=== PATIENT | female | born 2000 | race Two or more races ===

== ENCOUNTER 2018-07-23 09:48 | Inpatient (IN) | payer OTHER ==
[~2018-07-23] VITALS: Ht 167.6 cm; Wt 77.3 kg
[2018-07-23 10:55] LABS: HEMATOCRIT 43.1 % (36.0-47.0); HEMOGLOBIN 13.9 g/dl (12.0-15.5); MEAN CORPUSCULAR HGB CONC 32.3 g/dl (32.0-36.5); MEAN CORPUSCULAR VOLUME 83.7 fl (80.0-96.0); PLATELET COUNT, AUTOMATED 349 10^3/uL (150-450); RED BLOOD COUNT 5.15 10^6/uL (4.00-5.40); WHITE BLOOD COUNT 8.8 10^3/uL (4.0-10.0)
[2018-07-23 11:06] LABS: AMPHETAMINES LEVEL URINE NEGATIVE (NEGATIVE); BARBITURATES URINE NEGATIVE (NEGATIVE); BENZODIAZEPINES URINE NEGATIVE (NEGATIVE); CANNABINOIDS URINE NEGATIVE (NEGATIVE); COCAINE METABOLITE URINE NEGATIVE (NEGATIVE); METHADONE URINE NEGATIVE (NEGATIVE); OPIATES URINE NEGATIVE (NEGATIVE); PHENCYCLIDINE URINE NEGATIVE (NEGATIVE)
[2018-07-23 11:22] LABS: HCG, SERUM QUALITATIVE NEGATIVE (NEGATIVE)
[2018-07-23 11:33] LABS: ACETAMINOPHEN LEVEL < 2.0 UG/ML (10.0-30.0); ALBUMIN 4.2 GM/DL (3.2-5.2); ALT/SGPT 25 U/L (12-78); BILIRUBIN,DIRECT 0.1 MG/DL (0.0-0.2); BILIRUBIN,TOTAL 0.3 MG/DL (0.2-1.0); BLOOD UREA NITROGEN 11 MG/DL (7-18); CALCIUM LEVEL 9.3 MG/DL (8.5-10.1); CARBON DIOXIDE LEVEL 27 MEQ/L (21-32); CHLORIDE LEVEL 106 MEQ/L (98-107); ETHYL ALCOHOL (ETHANOL) < 0.003 % (0.000-0.010); GLUCOSE, FASTING 99 MG/DL (70-100); POTASSIUM SERUM 4.3 MEQ/L (3.5-5.1); SALICYLATE LEVEL < 1.7 MG/DL (5.0-30.0); SODIUM LEVEL 141 MEQ/L (136-145)
[2018-07-23] MEDS ORDERED: MAALOX 30 ML SUSP *UDC PO PRN (12:45)
[2018-07-23] MEDS ORDERED: ACETAMINOPHEN TAB 650MG DOSE (2X325MG) PO PRN (12:45)
[2018-07-23] MEDS ORDERED: MOM 30ML SUSPENSION UDC PO PRN (12:45)
[2018-07-23] MEDS ORDERED: [UNRECOGNIZED DRUG - CODE] PO (13:01)
[2018-07-23] MEDS ORDERED: IBUPOTC PO (13:01)
[2018-07-23 16:12] VITALS: BP 135/87
[2018-07-23 18:06] VITALS: BP 117/68
[2018-07-23] MEDS: traZODone 50 MG TAB PO PRN (20:24)
[2018-07-24 06:43] VITALS: BP 116/65
--- NOTE | 2018-07-24 10:07 | HPEPDOC ---
[facility] [place] Date of Admission Jul 23, 2018 History and Physical PCP: None ATTENDING: Dr. Yessenia Garcia HPI:17yoF admitted to [facility] for unspecified depressive disorder, being medically examined today. No acute medical complaints today. Denies any fevers, chills, weakness, fatigue, [place], CP, SOB, cough, palpitations, abdominal pain, N/V/D or changes in bowel or bladder habits. PMHx: anxiety depression H/O SI PSHX: denies SOCHX: Resides in: [facility] Marital Status: single Kids: none Employment: [employer] student Tobacco use: denies ETOH: 2-4 drinks per month Illicit Drugs: marijuana 1-2x per mo IV Drug Use: Denies Tattoos done unprofessionally: Denies FAMHX: Mother: Alive, well Father: Alive, ALS Siblings: 1 brother Alive, unknown Children: none Unexpected deaths due to medical reasons: None. ROS: As noted in HPI, otherwise 11pt ROS of systems reviewed and remarkable only for LMP 07/20/18. PE: GEN: 17yoF, appears stated age. Well-nourished, well developed. No acute distress. Alert and oriented x 3. Pleasant, interactive. HEENT: Normocephalic, atraumatic. Pupils are equal, round, and reactive to light. Extraocular movements are intact. No nystagmus appreciated. Sclera are n onicteric. Conjunctiva without injection. Nose midline. Nasal turbinates without bogginess. EACs both patent BL. TMs both visualized and olea with good cone of light, no bulging or erythema. No facial asymmetry. Moist mucous membranes. Dentition fair. Pharynx pink and moist, no cobblestoning. Neck supple, trachea midline. No lymphadenopathy or thyromegaly appreciated. CHEST: Regular rate and rhythm, +S1, +S2 LUNGS: Clear to auscultation bilaterally. No wheezes, rales, or rhonchi. Breathing appears symmetric and easy. Patient is speaking in full sentences. No accessory muscle use. ABD: Round, soft, non-tender, non-distended. +Bowel sounds throughout. No rebound or guarding. No costovertebral angle tenderness. EXT: Pulses 2+ bilaterally dorsalis pedis and radial. No lower extremity edema appreciated. SKIN: [place], dry, warm. Capillary refill <2sec. No rashes. NEURO: Alert and oriented x 3. Cranial nerves III-XII are intact. No focal deficits appreciated. EKG: pending A&P: 17yoF admitted to [facility] for unspecified depressive disorder 1. Psych. Plan per Psychiatry. Obtain baseline EKG to assure the safety of psychiatric medications as they can prolong the QT interval. 2. Follow up. No Primary Care Provider. Will attempt to establish PCP on discharge. 3. Staff member Charla DOHERTY present throughout exam. Vital Signs Vital Signs Date Time Temp Pulse Resp B/P (MAP) Pulse Ox O2 Delivery O2 Flow Rate FiO2 07/24/18 06:43 97.4 80 14 116/65 (82) 07/23/18 14:46 100 Room Air Laboratory Data Labs 24H Laboratory Tests 2 07/23/18 10:26: Nucleated Red Blood Cells % (auto) 0.0, Anion Gap 8, Calcium Level 9.3, Aspartate Amino Transf (AST/SGOT) 18, Alanine Aminotransferase (ALT/SGPT) 25, Alkaline Phosphatase 67, Total Bilirubin 0.3, Direct Bilirubin 0.1, Total Protein 8.0, Albumin 4.2, Albumin/Globulin Ratio 1.11, Thyroid Stimulating Hormone (TSH) 2.780, Human Chorionic Gonadotropin, Qual NEGATIVE, Salicylates Level < 1.7L, Acetaminophen Level < 2.0L, Ethyl Alcohol Level < 0.003 07/23/18 10:27: Urine Amphetamines Screen NEGATIVE, Urine Benzodiazepines Screen NEGATIVE, Urine Opiates Screen NEGATIVE, Urine Methadone Screen NEGATIVE, Urine Barbiturates Screen NEGATIVE, Urine Phencyclidine Screen NEGATIVE, Urine Cocaine Metabolite Screen NEGATIVE, Urine Cannabinoids Screen NEGATIVE CBC/BMP Laboratory Tests 07/23/18 10:26 Red Blood Count 5.15, Mean Corpuscular Volume 83.7, Mean Corpuscular Hemoglobin 27.0, Mean Corpuscular Hemoglobin Concent 32.3, Red Cell Distribution Width 13.8 Home Medications Scheduled (One A Day Womens 28-0.8-235 mg) 1 Cap Cap, 1 CAP PO DAILY Scheduled PRN Ibuprofen (Ibuprofen) 200 Mg Tab, 400 MG PO Q8H PRN for PAIN Allergies Coded Allergies: No Known Allergies (Unverified , 07/23/18) Ann Marie Haddad Jul 24, 2018 10:07
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
[2018-07-24] MEDS ORDERED: FLUoxetine 10 MG CAP PO ONE (12:30)
[2018-07-24 18:39] VITALS: BP 131/73
[2018-07-24] MEDS: traZODone 50 MG TAB PO PRN (21:40)
--- NOTE | 2018-07-24 22:07 | ECGEPIP ---
Stationary ECG Study [facility] Test Date: 2018-07-24 Pat Name: FIONA HASSAN Department: Room: [place] [address] Gender: F Manager [employer]: [employer] : 2000 Requested By: Ann Marie Haddad Order Number: [id number] Reading MD: Curly Ruiz Measurements Intervals [place] Rate: 93 P: 52 WY: 173 QRS: 58 QRSD: 92 T: 15 QT: 365 QTc: 454 Interpretive Statements SINUS RHYTHM NONSPECIFIC T-WAVE ABNORMALITY No prior tracing Clinical correlation? Electronically Signed On 07-24-2018 22:06:52 EST by Curly Ruiz
[2018-07-25 06:22] VITALS: BP 112/53
[2018-07-25] MEDS: hydrOXYzine 25 MG TAB PO PRN (08:18)
[2018-07-25] MEDS ORDERED: FLUoxetine 10 MG CAP PO SCH (09:00)
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
[2018-07-25 18:00] VITALS: BP 141/67
[2018-07-25] MEDS: QUEtiapine FUMARATE 25 MG TAB PO PRN (20:22)
[2018-07-26 06:04] VITALS: BP 133/74
[2018-07-26] MEDS: FLUoxetine 10 MG CAP PO SCH (10:23)
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
[2018-07-26 18:00] VITALS: BP 115/65
[2018-07-26] MEDS: hydrOXYzine 25 MG TAB PO PRN (18:29)
[2018-07-26] MEDS: QUEtiapine FUMARATE 25 MG TAB PO PRN (22:07)
[2018-07-27 06:00] VITALS: BP 110/63
[2018-07-27] MEDS: FLUoxetine 10 MG CAP PO SCH (08:17)
[2018-07-27 18:05] VITALS: BP 127/82
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
[2018-07-27] MEDS: QUEtiapine FUMARATE 25 MG TAB PO PRN (20:44)
[2018-07-28 06:57] VITALS: BP 114/59
[2018-07-28] MEDS: FLUoxetine 10 MG CAP PO SCH (08:17)
[2018-07-28] MEDS: hydrOXYzine 25 MG TAB PO PRN (14:31)
[2018-07-28 18:03] VITALS: BP 123/65
[2018-07-28] MEDS: QUEtiapine FUMARATE 25 MG TAB PO PRN (21:34)
[2018-07-29 06:00] VITALS: BP 102/54
[2018-07-29] MEDS: FLUoxetine 10 MG CAP PO SCH (08:17)
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
[2018-07-29] MEDS ORDERED: HYDR-3363 PO (10:05)
[2018-07-29] MEDS ORDERED: PROZ10CA7 PO (10:05)
[2018-07-29] MEDS ORDERED: QUET1TAB7 PO (10:05)
== END 2018-07-29 12:15 | disposition home or self-care (01) | DRG 754 ==
LOC: M ED 09:48 → M ED INP 12:34 → M PSY 14:55
PROVIDERS: ADMIT Psychiatry & Neurology Psychiatry; ATTEND Psychiatry & Neurology Psychiatry
DX: F32.9 Major depressive disorder, single episode, unspecified (principal); R45.851 Suicidal ideations; F41.9 Anxiety disorder, unspecified